=== PATIENT | female | born 1975 | race Hispanic/Latino ===

== ENCOUNTER 2017-07-22 11:19 | Emergency (ER) | payer OTHER ==
[2017-07-22] MEDS ORDERED: IPRATROPIUM/ALBUTEROL SULFATE 3 ML SOLUTION IH ONE (12:37)
[2017-11-04] MEDS ORDERED: METH4TAB PO (20:56)
[2017-11-04] MEDS ORDERED: FLUT1BLS IH (20:56)
== END 2017-07-22 13:11 | disposition home or self-care (01) ==
LOC: EDH 11:19
DX: S83.422A Sprain of lateral collateral ligament of left knee, initial encounter (principal); J45.909 Unspecified asthma, uncomplicated; E11.9 Type 2 diabetes mellitus without complications; W18.39XA Other fall on same level, initial encounter; Y93.01 Activity, walking, marching and hiking; Y92.098 Other place in other non-institutional residence as the place of occurrence of the external cause; Y99.8 Other external cause status
CPT/HCPCS: 73562; 94640

== ENCOUNTER 2017-08-02 18:59 | Emergency (ER) | payer SELFPAY ==
[2017-08-02 20:53] LABS: BASOPHILS % (AUTO) 0.8 % (0.0-5.0); EOSINOPHILS % (AUTO) 1.1 % (0.0-8.0); HEMATOCRIT 36.5 % (36-48); LYMPHOCYTES % (AUTO) 19.3 % (21.0-51.0); MEAN CORPUSCULAR HEMOGLOBIN 23.1 pg (27.0-33.0); MEAN CORPUSCULAR VOLUME 74.4 fL (79-99); MONOCYTES % (AUTO) 6.4 % (3.0-13.0); NEUTROPHILS % (AUTO) 72.4 % (40.0-77.0); NUCLEATED RED BLOOD CELLS 0.1 % (0.0-0.19); PLATELET COUNT (AUTO) 298 K/uL (130-400); RED BLOOD CELL COUNT(AUTO) 4.91 MIL/uL (4.00-5.50); RED CELL DISTRIBUTION WIDTH 18.6 % (11.0-15.5); WHITE BLOOD COUNT (AUTO) 12.2 K/uL (4.8-10.8)
[2017-08-02 21:12] LABS: CARBON DIOXIDE 34 mmol/L (21-32); CHLORIDE 102 mmol/L (101-111); CREATININE 0.6 mg/dL (0.5-1.5); GLOMERULAR FILTR. RATE CALC 116 mL/min (>60); GLUCOSE,RANDOM 113 mg/dL (70-105); POTASSIUM 3.9 mmol/L (3.5-5.1); SODIUM SERUM 140 mmol/L (136-145); UREA NITROGEN, BLOOD 10 mg/dL (7-18)
[2017-08-02 21:26] LABS: ALANINE AMINOTRANSFERASE 19 U/L (12-78); ALBUMIN 2.8 g/dL (3.5-5.0); ASPARTATE AMINOTRANSFERASE 17 U/L (10-37); BILIRUBIN,TOTAL 0.2 mg/dL (0.2-1.0); CREATINE KINASE MB < 0.5 ng/mL (0.5-3.6); CREATINE KINASE, TOTAL 50 U/L (21-232); TOTAL PROTEIN, SERUM 7.3 g/dL (6.0-8.3)
[2017-08-02 22:02] LABS: APPEARANCE,URINE CLEAR (CLEAR); BILIRUBIN,URINE NEGATIVE (NEGATIVE); COLOR,URINE YELLOW (YELLOW); GLUCOSE, URINE (UA) NEGATIVE (NEGATIVE); KETONES,URINE NEGATIVE (NEGATIVE); LEUKOCYTE ESTERASE ,URINE TRACE (NEGATIVE); NITRATE,URINE NEGATIVE (NEGATIVE); OCCULT BLOOD,URINE NEGATIVE (NEGATIVE); PROTEIN,URINE NEGATIVE (NEGATIVE); UROBILINOGEN,URINE 0.2 mg/dL (0.2-1.0)
[2017-08-02 22:05] LABS: HCG,QUAL RESULT NEGATIVE (NEGATIVE)
[2017-08-02 22:16] LABS: BACTERIA,URINE Rare /HPF (None Seen); RBC,URINE 0-1 /HPF (0-1)
[2017-08-02 22:17] LABS: CALCIUM OXALATE CRYSTALS,UR Few /LPF (None Seen); SQUAMOUS EPITHELIAL CELL,UR Rare /LPF (0-2)
[2017-11-04] MEDS ORDERED: METH4TAB PO (20:56)
[2017-11-04] MEDS ORDERED: FLUT1BLS IH (20:56)
== END 2017-08-02 23:37 | disposition home or self-care (01) ==
LOC: EDH 18:59
DX: J45.909 Unspecified asthma, uncomplicated (principal); R06.02 Shortness of breath; E11.9 Type 2 diabetes mellitus without complications; E66.9 Obesity, unspecified; Z68.44 Body mass index [BMI] 60.0-69.9, adult
CPT/HCPCS: 36415; 71045; 80053; 81001; 81025; 82550; 82553; 83880; 85025; 93005

== ENCOUNTER 2017-09-13 06:30 | Emergency (ER) | payer SELFPAY ==
[2017-09-13 08:17] LABS: BASOPHILS % (AUTO) 0.7 % (0.0-5.0); EOSINOPHILS % (AUTO) 1.4 % (0.0-8.0); HEMATOCRIT 38.6 % (36-48); MEAN CORPUSCULAR HEMOGLOBIN 22.8 pg (27.0-33.0); MEAN CORPUSCULAR HGB CONC 30.9 g/dL (32.0-36.0); NEUTROPHILS % (AUTO) 71.9 % (40.0-77.0); PLATELET COUNT (AUTO) 311 K/uL (130-400); RED BLOOD CELL COUNT(AUTO) 5.22 MIL/uL (4.00-5.50); RED CELL DISTRIBUTION WIDTH 18.5 % (11.0-15.5)
[2017-09-13 08:18] LABS: APPEARANCE,URINE Cloudy (CLEAR); BILIRUBIN,URINE Negative (NEGATIVE); COLOR,URINE Dark Yellow (YELLOW); GLUCOSE, URINE (UA) Negative (NEGATIVE); HCG,QUAL RESULT NEGATIVE (NEGATIVE); KETONES,URINE Negative (NEGATIVE); LEUKOCYTE ESTERASE ,URINE Small (NEGATIVE); NITRATE,URINE Negative (NEGATIVE); OCCULT BLOOD,URINE Negative (NEGATIVE); PH,URINE 5.5 (5.0-8.0); PROTEIN,URINE Negative (NEGATIVE)
[2017-09-13 08:22] LABS: BACTERIA,URINE Rare /HPF (None Seen); MUCUS,URINE Moderate LPF (None Seen); SQUAMOUS EPITHELIAL CELL,UR Moderate /HPF (0-2)
[2017-09-13 08:25] LABS: AMPHET/METH SCREEN,URINE NEGATIVE (NEGATIVE); BARBITURATE SCREEN, URINE NEGATIVE (NEGATIVE); BENZODIAZEPINES SCREEN,URINE NEGATIVE (NEGATIVE); CANNABINOID SCREEN,URINE NEGATIVE (NEGATIVE); COCAINE SCREEN,URINE NEGATIVE (NEGATIVE); CREATININE 0.6 mg/dL (0.5-1.5); OPIATE SCREEN,URINE NEGATIVE (NEGATIVE); PHENCYCLIDINE SCREEN,URINE NEGATIVE (NEGATIVE)
[2017-09-13 08:33] LABS: ALBUMIN 2.7 g/dL (3.5-5.0); BILIRUBIN,TOTAL 0.3 mg/dL (0.2-1.0); TOTAL PROTEIN, SERUM 7.4 g/dL (6.0-8.3)
[2017-09-13] MEDS ORDERED: TRAMADOL HCL 50 MG TABLET ONE (09:10)
[2017-11-04] MEDS ORDERED: METH4TAB PO (20:56)
[2017-11-04] MEDS ORDERED: FLUT1BLS IH (20:56)
== END 2017-09-13 10:32 | disposition home or self-care (01) ==
LOC: EDH 06:30
DX: S09.8XXA Other specified injuries of head, initial encounter (principal); M25.511 Pain in right shoulder; J45.909 Unspecified asthma, uncomplicated; E11.9 Type 2 diabetes mellitus without complications; E66.9 Obesity, unspecified; Z68.43 Body mass index [BMI] 50.0-59.9, adult; W18.12XA Fall from or off toilet with subsequent striking against object, initial encounter; Y93.89 Activity, other specified; Y92.89 Other specified places as the place of occurrence of the external cause; Y99.8 Other external cause status
CPT/HCPCS: 36415; 70450; 71045; 73030; 80053; 80305; 81001; 81025; 85025

== ENCOUNTER 2017-09-25 12:40 | Inpatient (IN) | payer OTHER ==
[~2017-09-25] VITALS: Ht 154.9 cm; Wt 155.2 kg
[~2017-09-25 12:40] MED LIST: ETOMIDATE 2 MG/ML 10 ML VIAL IVP ONE; SUCCINYLCHOLINE CHLORIDE 20 MG/ML 10 ML VIAL IVP ONE
[2017-09-25] MEDS ORDERED: ONDANSETRON HCL MDV 20ML 2 MG/ML VIAL ONE (13:08)
[2017-09-25 13:22] LABS: CARBON DIOXIDE 33 mmol/L (21-32); CHLORIDE 103 mmol/L (101-111); CREATININE 0.6 mg/dL (0.5-1.5); GLOMERULAR FILTR. RATE CALC 116 mL/min (>60); GLUCOSE,RANDOM 116 mg/dL (70-105); POTASSIUM 4.2 mmol/L (3.5-5.1); SODIUM SERUM 140 mmol/L (136-145); UREA NITROGEN, BLOOD 11 mg/dL (7-18)
[2017-09-25 13:24] LABS: INR 0.97 (0.85-1.15); PARTIAL THROMBOPLASTIN TIME 26.8 SEC (26.3-35.5); PROTHROMBIN TIME 10.2 SEC (9.6-11.6)
[2017-09-25 13:26] LABS: ALANINE AMINOTRANSFERASE 17 U/L (12-78); ALBUMIN 2.9 g/dL (3.5-5.0); ASPARTATE AMINOTRANSFERASE 14 U/L (10-37); BILIRUBIN,TOTAL 0.3 mg/dL (0.2-1.0); TOTAL PROTEIN, SERUM 7.6 g/dL (6.0-8.3)
[2017-09-25 13:27] LABS: LIPASE < 50 U/L (114-286)
[2017-09-25 13:37] LABS: CREATINE KINASE MB 0.9 ng/mL (0.5-3.6)
[2017-09-25 13:37] LABS: APPEARANCE,URINE Cloudy (CLEAR); BILIRUBIN,URINE Negative (NEGATIVE); COLOR,URINE Yellow (YELLOW); GLUCOSE, URINE (UA) Negative (NEGATIVE); KETONES,URINE Negative (NEGATIVE); LEUKOCYTE ESTERASE ,URINE Small (NEGATIVE); NITRATE,URINE Negative (NEGATIVE); OCCULT BLOOD,URINE Negative (NEGATIVE); PH,URINE 6.5 (5.0-8.0); PROTEIN,URINE Negative (NEGATIVE)
[2017-09-25 13:46] LABS: BACTERIA,URINE Few /HPF (None Seen); RBC,URINE 0-1 /HPF (0-1)
[2017-09-25 13:47] LABS: BASOPHILS % (AUTO) 0.7 % (0.0-5.0); EOSINOPHILS % (AUTO) 1.1 % (0.0-8.0); HEMATOCRIT 39.9 % (36-48); MEAN CORPUSCULAR HGB CONC 31.3 g/dL (32.0-36.0); MEAN CORPUSCULAR VOLUME 73.4 fL (79-99); MONOCYTES % (AUTO) 4.9 % (3.0-13.0); NEUTROPHILS % (AUTO) 77.3 % (40.0-77.0); NUCLEATED RED BLOOD CELLS 0.1 % (0.0-0.19); PLATELET COUNT (AUTO) 315 K/uL (130-400); RED BLOOD CELL COUNT(AUTO) 5.43 MIL/uL (4.00-5.50); RED CELL DISTRIBUTION WIDTH 18.8 % (11.0-15.5); WHITE BLOOD COUNT (AUTO) 11.2 K/uL (4.8-10.8)
[2017-09-25] MEDS ORDERED: ORPHENADRINE CITRATE 30 MG/ML ML ONE (14:45)
[2017-09-25] MEDS ORDERED: KETOROLAC TROMETHAMINE 15MG/ML ONE (14:45)
[2017-09-25] MEDS ORDERED: IPRATROPIUM/ALBUTEROL SULFATE 3 ML SOLUTION IH ONE (15:02)
[2017-09-25] MEDS ORDERED: SODIUM CHLORIDE 0.9% 1000ML 1,000 ML IV ONE (16:03)
[2017-09-25 17:18] LABS: ABG BASE EXCESS 2.1 mmol/L (-2.0-3.0); ABG HCO3 30.6 mmol/L (21.0-28.0); ABG OXYGEN SATURATION 81.6 % (95.0-99.0); ABG PCO2 65 mmHg (32-45)
[2017-09-25 18:53] VITALS: BP 129/73
[2017-09-25] MEDS: ONDANSETRON HCL MDV 20ML 2 MG/ML VIAL IVP PRN (21:40)
[2017-09-25] MEDS ORDERED: ALBU6.7H IH (21:46)
[2017-09-25] MEDS ORDERED: AUD IH (21:46)
[2017-09-25] MEDS ORDERED: METF850T2 PO (21:46)
[2017-09-25] MEDS ORDERED: GLUCAGON 1MG KIT 1 MG ML IM PRN (23:00)
[2017-09-25] MEDS ORDERED: POTASSIUM CHLORIDE 20 MEQ ERTAB PO PRN (23:00)
[2017-09-25] MEDS ORDERED: LIDOCAINE HCL-MPF 1% 2ML VIAL IVP PRN (23:00)
[2017-09-25] MEDS ORDERED: KETOROLAC TROMETHAMINE 15MG/ML IM PRN (23:00)
[2017-09-25] MEDS ORDERED: DEXTROSE 50%-WATER 50 ML DISP.SYRIN IV PRN (23:00)
[2017-09-25] MEDS: IPRATROPIUM/ALBUTEROL SULFATE 3 ML SOLUTION IH SCH (23:09)
[2017-09-25 23:56] VITALS: BP 153/85
[2017-09-26] VITALS (9 sets, daily range): BP systolic 98–162; BP diastolic 51–98
[2017-09-26] MEDS ORDERED: KETOROLAC TROMETHAMINE 15MG/ML ONE (00:49)
[2017-09-26] MEDS: ACETAMINOPHEN 325 MG TAB PO PRN ×3 (02:11→20:02)
[2017-09-26 04:02] LABS: BASOPHILS % (AUTO) 0.6 % (0.0-5.0); EOSINOPHILS % (AUTO) 0.1 % (0.0-8.0); HEMATOCRIT 38.9 % (36-48); LYMPHOCYTES % (AUTO) 12.3 % (21.0-51.0); MEAN CORPUSCULAR HEMOGLOBIN 23.4 pg (27.0-33.0); MEAN CORPUSCULAR VOLUME 75.6 fL (79-99); MONOCYTES % (AUTO) 4.5 % (3.0-13.0); NEUTROPHILS % (AUTO) 82.5 % (40.0-77.0); NUCLEATED RED BLOOD CELLS 0.1 % (0.0-0.19); PLATELET COUNT (AUTO) 355 K/uL (130-400); RED BLOOD CELL COUNT(AUTO) 5.15 MIL/uL (4.00-5.50); RED CELL DISTRIBUTION WIDTH 18.7 % (11.0-15.5); WHITE BLOOD COUNT (AUTO) 14.1 K/uL (4.8-10.8)
[2017-09-26 04:09] LABS: CREATININE 0.7 mg/dL (0.5-1.5); POTASSIUM 4.4 mmol/L (3.5-5.1)
[2017-09-26] MEDS ORDERED: KETOROLAC TROMETHAMINE 15MG/ML IV PRN (05:00)
[2017-09-26] MEDS: IPRATROPIUM/ALBUTEROL SULFATE 3 ML SOLUTION IH SCH ×3 (05:57→18:37)
[2017-09-26] MEDS: INSULIN HUMULIN R 100 UNIT/ML 3ML SQ SCH ×4 (06:35→20:03)
[2017-09-26] MEDS: FAMOTIDINE 20MG TAB 20 MG TAB PO SCH ×2 (08:43→20:01)
[2017-09-26] MEDS: METHYLPREDNISOLONE SOD SUCC 40MG/ML 1ML IVP SCH ×2 (08:44→20:01)
[2017-09-26 09:52] LABS: ABG BASE EXCESS 1.3 mmol/L (-2.0-3.0); ABG HCO3 34.1 mmol/L (21.0-28.0); ABG OXYGEN SATURATION 88.9 % (95.0-99.0); ABG PCO2 103 mmHg (32-45)
[2017-09-26] MEDS ORDERED: ENOXAPARIN SODIUM 60 MG/0.6 ML SQ SCH (10:30)
[2017-09-26 17:48] LABS: ABG BASE EXCESS 1.2 mmol/L (-2.0-3.0); ABG HCO3 32.9 mmol/L (21.0-28.0); ABG OXYGEN SATURATION 80.1 % (95.0-99.0); ABG PCO2 91 mmHg (32-45)
[2017-09-26 22:48] LABS: ABG OXYGEN SATURATION 91.9 % (95.0-99.0); ABG PCO2 120 mmHg (32-45)
[2017-09-26] MEDS ORDERED: PROPOFOL 1000 MG/100 ML 100 ML IV ONE (23:30)
[2017-09-26] MEDS ORDERED: MIDAZOLAM HCL 1 MG/ML 2ML VIAL ONE (23:30)
[2017-09-27] VITALS (35 sets, daily range): BP systolic 80–136; BP diastolic 51–83
[2017-09-27] MEDS ORDERED: FENTANYL 2500MCG+NS 250ML 250 ML IV ONE (00:08)
[2017-09-27] MEDS ORDERED: FENTANYL 2500MCG+NS 250ML 250 ML IV PRN (00:15)
[2017-09-27] MEDS: IPRATROPIUM/ALBUTEROL SULFATE 3 ML SOLUTION IH SCH ×4 (00:46→19:23)
[2017-09-27] MEDS ORDERED: PROPOFOL 1000 MG/100 ML 100 ML IV ONE (00:53)
[2017-09-27 01:45] LABS: ABG BASE EXCESS 6.5 mmol/L (-2.0-3.0); ABG HCO3 32.4 mmol/L (21.0-28.0); ABG OXYGEN SATURATION 99.3 % (95.0-99.0); ABG PCO2 51 mmHg (32-45)
[2017-09-27] MEDS: MIDAZOLAM 100MG-0.9% NS 100ML 100 ML IV PRN ×2 (01:53→11:27)
[2017-09-27] MEDS ORDERED: PROPOFOL 1000 MG/100 ML IV PRN (03:15)
[2017-09-27] MEDS: PROPOFOL 1000 MG/100 ML 100 ML IV PRN ×4 (04:03→22:16)
[2017-09-27] MEDS: INSULIN HUMULIN R 100 UNIT/ML 3ML SQ SCH ×3 (06:00→18:00)
[2017-09-27 08:31] LABS: ABG BASE EXCESS 7.1 mmol/L (-2.0-3.0); ABG HCO3 29.6 mmol/L (21.0-28.0); ABG OXYGEN SATURATION 85.4 % (95.0-99.0); ABG PCO2 35 mmHg (32-45)
[2017-09-27] MEDS: ENOXAPARIN SODIUM 60 MG/0.6 ML SQ SCH (10:32)
[2017-09-27] MEDS: METHYLPREDNISOLONE SOD SUCC 40MG/ML 1ML IVP SCH ×2 (10:32→20:28)
[2017-09-27] MEDS: FAMOTIDINE 20MG TAB 20 MG TAB PO SCH ×2 (10:32→20:28)
[2017-09-27] MEDS: DEXTROSE 5 %-0.45 % NACL 1,000 ML IV SCH (11:28)
[2017-09-27 11:33] LABS: ALBUMIN 2.8 g/dL (3.5-5.0); BILIRUBIN,TOTAL 0.6 mg/dL (0.2-1.0); CREATININE 0.7 mg/dL (0.5-1.5); TOTAL PROTEIN, SERUM 7.3 g/dL (6.0-8.3)
[2017-09-27 11:44] LABS: BASOPHILS % (AUTO) 0.1 % (0.0-5.0); HEMATOCRIT 37.6 % (36-48); MEAN CORPUSCULAR HGB CONC 30.6 g/dL (32.0-36.0); MEAN CORPUSCULAR VOLUME 75.3 fL (79-99); MONOCYTES % (AUTO) 4.4 % (3.0-13.0); NEUTROPHILS % (AUTO) 89.5 % (40.0-77.0); PLATELET COUNT (AUTO) 280 K/uL (130-400); RED BLOOD CELL COUNT(AUTO) 4.99 MIL/uL (4.00-5.50); RED CELL DISTRIBUTION WIDTH 18.6 % (11.0-15.5); WHITE BLOOD COUNT (AUTO) 23.3 K/uL (4.8-10.8)
[2017-09-27] MEDS ORDERED: VANCOMYCIN 1.25 GM in SODIUM CHLORIDE 0.9% 250 ML IV SCH (14:00)
[2017-09-27 14:43] LABS: ABG BASE EXCESS 9.9 mmol/L (-2.0-3.0); ABG HCO3 33.3 mmol/L (21.0-28.0); ABG OXYGEN SATURATION 98.2 % (95.0-99.0); ABG PCO2 40 mmHg (32-45)
[2017-09-27] MEDS ORDERED: VANCOMYCIN PROTOCOL PER PHARMACY IV SCH (14:45)
[2017-09-27] MEDS: ZOSYN 3.375GM+NS 50ML 50 ML IV SCH ×2 (14:47→20:47)
[2017-09-27] MEDS ORDERED: COMPOUND IV REFRIGERATED 1 EACH IVSOLN MISC PRN (15:45)
[2017-09-27] MEDS: ARTIFICAL TEARS SOL 15 ML OD PRN ×2 (16:13→20:53)
[2017-09-27] MEDS: VANCOMYCIN IV SCH (23:15)
[2017-09-27] MEDS: SODIUM CHLORIDE 0.9% IV SCH (23:15)
[2017-09-28] VITALS (24 sets, daily range): BP systolic 81–156; BP diastolic 31–97
[2017-09-28] MEDS: DEXTROSE 5 %-0.45 % NACL 1,000 ML IV SCH ×2 (00:20→13:27)
[2017-09-28] MEDS: IPRATROPIUM/ALBUTEROL SULFATE 3 ML SOLUTION IH SCH ×4 (00:29→19:29)
[2017-09-28] MEDS: PROPOFOL 1000 MG/100 ML 100 ML IV PRN ×4 (01:43→21:28)
[2017-09-28 04:05] LABS: MEAN CORPUSCULAR HEMOGLOBIN 23.7 pg (27.0-33.0); MEAN CORPUSCULAR HGB CONC 31.7 g/dL (32.0-36.0); MEAN CORPUSCULAR VOLUME 74.7 fL (79-99); PLATELET COUNT (AUTO) 262 K/uL (130-400); RED BLOOD CELL COUNT(AUTO) 4.68 MIL/uL (4.00-5.50); RED CELL DISTRIBUTION WIDTH 18.9 % (11.0-15.5); WHITE BLOOD COUNT (AUTO) 18.8 K/uL (4.8-10.8)
[2017-09-28 04:13] LABS: INR 1.02 (0.85-1.15); PROTHROMBIN TIME 10.7 SEC (9.6-11.6)
[2017-09-28 04:18] LABS: CREATININE 0.6 mg/dL (0.5-1.5); MAGNESIUM 2.1 mg/dL (1.80-2.40); PHOSPHORUS 2.4 mg/dL (2.5-4.9); POTASSIUM 4.1 mmol/L (3.5-5.1)
[2017-09-28] MEDS: ZOSYN 3.375GM+NS 50ML 50 ML IV SCH ×3 (05:38→21:33)
[2017-09-28] MEDS: INSULIN HUMULIN R 100 UNIT/ML 3ML SQ SCH ×5 (05:59→23:53)
[2017-09-28] MEDS: FAMOTIDINE 20MG TAB 20 MG TAB PO SCH ×2 (09:00→20:36)
[2017-09-28] MEDS: PANTOPRAZOLE 40 MG/VIAL IVP SCH (10:40)
[2017-09-28] MEDS: ENOXAPARIN SODIUM 60 MG/0.6 ML SQ SCH (10:41)
[2017-09-28] MEDS: METHYLPREDNISOLONE SOD SUCC 40MG/ML 1ML IVP SCH ×2 (10:41→20:35)
[2017-09-28] MEDS: VANCOMYCIN IV SCH ×2 (12:00→23:32)
[2017-09-28] MEDS: SODIUM CHLORIDE 0.9% IV SCH ×2 (12:00→23:32)
[2017-09-28] MEDS: FUROSEMIDE 10 MG/ML 4ML VIAL IV SCH (19:04)
[2017-09-29] VITALS (25 sets, daily range): BP systolic 88–169; BP diastolic 45–95
[2017-09-29] MEDS: IPRATROPIUM/ALBUTEROL SULFATE 3 ML SOLUTION IH SCH ×5 (00:28→23:28)
[2017-09-29] MEDS: PROPOFOL 1000 MG/100 ML 100 ML IV PRN ×7 (00:45→22:51)
[2017-09-29] MEDS: DEXTROSE 5 %-0.45 % NACL 1,000 ML IV SCH ×2 (03:05→21:41)
[2017-09-29 05:14] LABS: BASOPHILS % (AUTO) 0.3 % (0.0-5.0); EOSINOPHILS % (AUTO) 0.1 % (0.0-8.0); HEMATOCRIT 35.8 % (36-48); LYMPHOCYTES % (AUTO) 6.2 % (21.0-51.0); MEAN CORPUSCULAR HEMOGLOBIN 23.6 pg (27.0-33.0); MEAN CORPUSCULAR HGB CONC 31.6 g/dL (32.0-36.0); MEAN CORPUSCULAR VOLUME 74.7 fL (79-99); MONOCYTES % (AUTO) 4.3 % (3.0-13.0); NEUTROPHILS % (AUTO) 89.1 % (40.0-77.0); NUCLEATED RED BLOOD CELLS 0.1 % (0.0-0.19); PLATELET COUNT (AUTO) 289 K/uL (130-400); RED BLOOD CELL COUNT(AUTO) 4.79 MIL/uL (4.00-5.50); RED CELL DISTRIBUTION WIDTH 18.6 % (11.0-15.5); WHITE BLOOD COUNT (AUTO) 17.6 K/uL (4.8-10.8)
[2017-09-29 05:30] LABS: CREATININE 0.6 mg/dL (0.5-1.5); POTASSIUM 3.9 mmol/L (3.5-5.1)
[2017-09-29] MEDS: INSULIN HUMULIN R 100 UNIT/ML 3ML SQ SCH ×3 (06:00→18:00)
[2017-09-29] MEDS: ZOSYN 3.375GM+NS 50ML 50 ML IV SCH ×3 (06:07→21:55)
[2017-09-29] MEDS: FUROSEMIDE 10 MG/ML 4ML VIAL IV ONE ×2 (08:33→09:20)
[2017-09-29] MEDS: PANTOPRAZOLE 40 MG/VIAL IVP SCH ×2 (08:33→08:44)
[2017-09-29] MEDS: FAMOTIDINE 20MG TAB 20 MG TAB PO SCH ×2 (08:41→21:00)
[2017-09-29] MEDS: METHYLPREDNISOLONE SOD SUCC 40MG/ML 1ML IVP SCH ×2 (08:43→21:55)
[2017-09-29] MEDS: ENOXAPARIN SODIUM 60 MG/0.6 ML SQ SCH (08:43)
[2017-09-29] MEDS: FUROSEMIDE 10 MG/ML 4ML VIAL IV SCH ×3 (10:15→22:40)
[2017-09-29 10:38] LABS: ABG BASE EXCESS 9.3 mmol/L (-2.0-3.0); ABG HCO3 36.8 mmol/L (21.0-28.0); ABG OXYGEN SATURATION 88.6 % (95.0-99.0); ABG PCO2 62 mmHg (32-45)
[2017-09-29] MEDS: ACETYLCYSTEINE 10% 100MG/ML 4ML VIAL IH SCH ×3 (11:37→23:28)
[2017-09-29] MEDS: VANCOMYCIN IV SCH ×2 (12:36→21:55)
[2017-09-29] MEDS: SODIUM CHLORIDE 0.9% IV SCH ×2 (12:36→21:55)
[2017-09-29] MEDS: LISINOPRIL 10 MG TABLET PO SCH (15:39)
[2017-09-29] MEDS: METOPROLOL TARTRATE 25 MG TAB PO SCH (20:34)
[2017-09-30] VITALS (24 sets, daily range): BP systolic 101–157; BP diastolic 40–104
[2017-09-30] MEDS: PROPOFOL 1000 MG/100 ML 100 ML IV PRN ×5 (02:24→23:16)
[2017-09-30 03:51] LABS: BASOPHILS % (AUTO) 0.3 % (0.0-5.0); EOSINOPHILS % (AUTO) 0.1 % (0.0-8.0); HEMATOCRIT 35.6 % (36-48); LYMPHOCYTES % (AUTO) 8.3 % (21.0-51.0); MEAN CORPUSCULAR HGB CONC 31.1 g/dL (32.0-36.0); MONOCYTES % (AUTO) 4.5 % (3.0-13.0); NEUTROPHILS % (AUTO) 86.8 % (40.0-77.0); PLATELET COUNT (AUTO) 281 K/uL (130-400); RED BLOOD CELL COUNT(AUTO) 4.82 MIL/uL (4.00-5.50); RED CELL DISTRIBUTION WIDTH 18.8 % (11.0-15.5); WHITE BLOOD COUNT (AUTO) 14.6 K/uL (4.8-10.8)
[2017-09-30 04:21] LABS: CREATININE 0.6 mg/dL (0.5-1.5); MAGNESIUM 2.1 mg/dL (1.80-2.40); PHOSPHORUS 3.3 mg/dL (2.5-4.9); POTASSIUM 3.8 mmol/L (3.5-5.1)
[2017-09-30] MEDS: INSULIN HUMULIN R 100 UNIT/ML 3ML SQ SCH ×4 (05:22→18:00)
[2017-09-30] MEDS: ZOSYN 3.375GM+NS 50ML 50 ML IV SCH ×3 (06:04→21:52)
[2017-09-30] MEDS: IPRATROPIUM/ALBUTEROL SULFATE 3 ML SOLUTION IH SCH ×3 (06:28→18:16)
[2017-09-30] MEDS: ACETYLCYSTEINE 10% 100MG/ML 4ML VIAL IH SCH ×3 (06:28→18:16)
[2017-09-30] MEDS: METHYLPREDNISOLONE SOD SUCC 40MG/ML 1ML IVP SCH ×2 (08:37→20:45)
[2017-09-30] MEDS: FAMOTIDINE/PF 20 MG/2 ML VIAL IV SCH ×2 (08:37→20:48)
[2017-09-30] MEDS: ENOXAPARIN SODIUM 60 MG/0.6 ML SQ SCH (08:39)
[2017-09-30] MEDS: LISINOPRIL 10 MG TABLET PO SCH (09:00)
[2017-09-30] MEDS: METOPROLOL TARTRATE 25 MG TAB PO SCH ×2 (09:00→20:46)
[2017-09-30 10:07] LABS: ABG BASE EXCESS 7.5 mmol/L (-2.0-3.0); ABG OXYGEN SATURATION 94.2 % (95.0-99.0); ABG PCO2 55 mmHg (32-45)
[2017-09-30] MEDS: FUROSEMIDE 10 MG/ML 4ML VIAL IV SCH ×2 (10:45→21:53)
[2017-09-30] MEDS ORDERED: ARTIFICAL TEARS SOL 15 ML OD PRN (11:19)
[2017-09-30] MEDS: VANCOMYCIN IV SCH (12:31)
[2017-09-30] MEDS: SODIUM CHLORIDE 0.9% IV SCH (12:31)
[2017-09-30 13:33] LABS: ABG BASE EXCESS 9.1 mmol/L (-2.0-3.0); ABG HCO3 36.8 mmol/L (21.0-28.0); ABG OXYGEN SATURATION 88.4 % (95.0-99.0); ABG PCO2 63 mmHg (32-45)
[2017-09-30] MEDS: DEXTROSE 5 %-0.45 % NACL 1,000 ML IV SCH (21:49)
[2017-10-01] VITALS (25 sets, daily range): BP systolic 87–151; BP diastolic 46–88
[2017-10-01] MEDS: ACETYLCYSTEINE 10% 100MG/ML 4ML VIAL IH SCH ×5 (00:12→23:24)
[2017-10-01] MEDS: IPRATROPIUM/ALBUTEROL SULFATE 3 ML SOLUTION IH SCH ×5 (00:12→23:24)
[2017-10-01] MEDS: SODIUM CHLORIDE 0.9% IV SCH ×3 (00:44→22:31)
[2017-10-01] MEDS: VANCOMYCIN IV SCH ×3 (00:44→22:31)
[2017-10-01] MEDS: PROPOFOL 1000 MG/100 ML 100 ML IV PRN ×2 (02:05→04:42)
[2017-10-01 03:56] LABS: HEMATOCRIT 35.1 % (36-48); MEAN CORPUSCULAR HEMOGLOBIN 23.7 pg (27.0-33.0); MEAN CORPUSCULAR HGB CONC 32.2 g/dL (32.0-36.0); MEAN CORPUSCULAR VOLUME 73.8 fL (79-99); PLATELET COUNT (AUTO) 282 K/uL (130-400); RED BLOOD CELL COUNT(AUTO) 4.75 MIL/uL (4.00-5.50); RED CELL DISTRIBUTION WIDTH 18.4 % (11.0-15.5); WHITE BLOOD COUNT (AUTO) 13.6 K/uL (4.8-10.8)
[2017-10-01 04:06] LABS: CREATININE 0.7 mg/dL (0.5-1.5); POTASSIUM 3.7 mmol/L (3.5-5.1)
[2017-10-01] MEDS: ZOSYN 3.375GM+NS 50ML 50 ML IV SCH ×3 (05:15→21:06)
[2017-10-01] MEDS: INSULIN HUMULIN R 100 UNIT/ML 3ML SQ SCH ×5 (05:46→23:57)
[2017-10-01] MEDS: POTASSIUM CHLORIDE 20MEQ/100ML 100 ML IV PRN (06:01)
[2017-10-01] MEDS: FAMOTIDINE/PF 20 MG/2 ML VIAL IV SCH ×2 (09:32→20:44)
[2017-10-01] MEDS: METHYLPREDNISOLONE SOD SUCC 40MG/ML 1ML IVP SCH ×2 (09:32→20:45)
[2017-10-01] MEDS: ENOXAPARIN SODIUM 60 MG/0.6 ML SQ SCH (09:32)
[2017-10-01] MEDS: METOPROLOL TARTRATE 25 MG TAB PO SCH ×2 (09:33→21:03)
[2017-10-01] MEDS: LISINOPRIL 10 MG TABLET PO SCH (09:33)
[2017-10-01] MEDS: FUROSEMIDE 10 MG/ML 4ML VIAL IV SCH ×2 (09:43→21:07)
[2017-10-01 09:58] LABS: ABG BASE EXCESS 6.3 mmol/L (-2.0-3.0); ABG HCO3 33.4 mmol/L (21.0-28.0); ABG OXYGEN SATURATION 94.3 % (95.0-99.0); ABG PCO2 59 mmHg (32-45)
[2017-10-02] VITALS (14 sets, daily range): BP systolic 87–139; BP diastolic 41–78
[2017-10-02] MEDS: INSULIN HUMULIN R 100 UNIT/ML 3ML SQ SCH ×4 (05:03→21:09)
[2017-10-02] MEDS: ZOSYN 3.375GM+NS 50ML 50 ML IV SCH ×3 (05:03→20:35)
[2017-10-02] MEDS: POTASSIUM CHLORIDE 20MEQ/100ML 100 ML IV PRN (05:03)
[2017-10-02 05:13] LABS: BASOPHILS % (AUTO) 0.5 % (0.0-5.0); EOSINOPHILS % (AUTO) 0.5 % (0.0-8.0); HEMATOCRIT 36.7 % (36-48); LYMPHOCYTES % (AUTO) 10.6 % (21.0-51.0); MEAN CORPUSCULAR HEMOGLOBIN 22.8 pg (27.0-33.0); MEAN CORPUSCULAR HGB CONC 30.8 g/dL (32.0-36.0); MONOCYTES % (AUTO) 6.2 % (3.0-13.0); NEUTROPHILS % (AUTO) 82.2 % (40.0-77.0); PLATELET COUNT (AUTO) 293 K/uL (130-400); RED BLOOD CELL COUNT(AUTO) 4.95 MIL/uL (4.00-5.50); RED CELL DISTRIBUTION WIDTH 18.6 % (11.0-15.5); WHITE BLOOD COUNT (AUTO) 17.9 K/uL (4.8-10.8)
[2017-10-02 05:19] LABS: CREATININE 0.7 mg/dL (0.5-1.5); POTASSIUM 3.7 mmol/L (3.5-5.1)
[2017-10-02] MEDS: ACETYLCYSTEINE 10% 100MG/ML 4ML VIAL IH SCH ×4 (06:35→23:58)
[2017-10-02] MEDS: IPRATROPIUM/ALBUTEROL SULFATE 3 ML SOLUTION IH SCH ×4 (06:35→23:58)
[2017-10-02 06:59] LABS: ABG BASE EXCESS 6.5 mmol/L (-2.0-3.0); ABG HCO3 32.9 mmol/L (21.0-28.0); ABG PCO2 55 mmHg (32-45)
[2017-10-02] MEDS: METOPROLOL TARTRATE 25 MG TAB PO SCH ×2 (09:20→20:33)
[2017-10-02] MEDS: LISINOPRIL 10 MG TABLET PO SCH (09:23)
[2017-10-02] MEDS: FAMOTIDINE/PF 20 MG/2 ML VIAL IV SCH ×2 (09:23→20:34)
[2017-10-02] MEDS: FUROSEMIDE 10 MG/ML 4ML VIAL IV SCH ×2 (09:24→20:34)
[2017-10-02] MEDS: METHYLPREDNISOLONE SOD SUCC 40MG/ML 1ML IVP SCH ×2 (09:24→20:34)
[2017-10-02] MEDS: ENOXAPARIN SODIUM 60 MG/0.6 ML SQ SCH (09:26)
[2017-10-02] MEDS: VANCOMYCIN IV SCH (11:38)
[2017-10-02] MEDS: SODIUM CHLORIDE 0.9% IV SCH (11:38)
[2017-10-02] MEDS ORDERED: SODIUM CHLORIDE 0.9% 500ML 500 ML IV ONE (20:59)
[2017-10-03] MEDS: VANCOMYCIN IV SCH ×2 (00:38→11:51)
[2017-10-03] MEDS: SODIUM CHLORIDE 0.9% IV SCH ×2 (00:38→11:51)
[2017-10-03] MEDS: ONDANSETRON HCL MDV 20ML 2 MG/ML VIAL IVP PRN (02:14)
[2017-10-03] MEDS: ACETAMINOPHEN 325 MG TAB PO PRN (02:16)
[2017-10-03 03:59] VITALS: BP 117/62
[2017-10-03 04:48] LABS: CREATININE 0.7 mg/dL (0.5-1.5); POTASSIUM 3.6 mmol/L (3.5-5.1)
[2017-10-03] MEDS: ZOSYN 3.375GM+NS 50ML 50 ML IV SCH (05:34)
[2017-10-03] MEDS: POTASSIUM CHLORIDE 10% ELIXIR 20 MEQ/15 ML UDCUP PO PRN ×2 (05:35→07:13)
[2017-10-03] MEDS: INSULIN HUMULIN R 100 UNIT/ML 3ML SQ SCH ×2 (05:42→10:53)
[2017-10-03] MEDS: IPRATROPIUM/ALBUTEROL SULFATE 3 ML SOLUTION IH SCH ×2 (06:44→11:07)
[2017-10-03] MEDS: ACETYLCYSTEINE 10% 100MG/ML 4ML VIAL IH SCH ×2 (06:44→11:07)
[2017-10-03 07:49] VITALS: BP 119/72
[2017-10-03] MEDS: METHYLPREDNISOLONE SOD SUCC 40MG/ML 1ML IVP SCH (08:26)
[2017-10-03] MEDS: FAMOTIDINE/PF 20 MG/2 ML VIAL IV SCH (08:26)
[2017-10-03] MEDS: LISINOPRIL 10 MG TABLET PO SCH (08:26)
[2017-10-03] MEDS: ENOXAPARIN SODIUM 60 MG/0.6 ML SQ SCH (08:27)
[2017-10-03] MEDS: METOPROLOL TARTRATE 25 MG TAB PO SCH (08:27)
[2017-10-03] MEDS: FUROSEMIDE 10 MG/ML 4ML VIAL IV SCH (10:43)
[2017-10-03 11:11] VITALS: BP 123/56
[2017-10-04] MEDS ORDERED: PREDNISONE 20 MG TABLET PO SCH (09:00)
[2017-11-04] MEDS ORDERED: METH4TAB PO (20:56)
[2017-11-04] MEDS ORDERED: FLUT1BLS IH (20:56)
== END 2017-10-03 14:21 | disposition home or self-care (01) | DRG 207 ==
LOC: EDH 12:40 → EDHIP 12:41 → 2AH 18:46 → 2CH 09-26 23:18 → 2AH 10-02 13:04
PROVIDERS: ADMIT Family Medicine; ATTEND Family Medicine
PROC: 0BH17EZ Insertion of Endotracheal Airway into Trachea, Via Natural or Artificial Opening (ICD-10-PCS; principal; 2017-09-25)
PROC: 5A1955Z Respiratory Ventilation, Greater than 96 Consecutive Hours (ICD-10-PCS; 2017-09-25)
PROC: 5A09357 Assistance with Respiratory Ventilation, Less than 24 Consecutive Hours, Continuous Positive Airway Pressure (ICD-10-PCS; 2017-09-25)
PROC: 5A09357 Assistance with Respiratory Ventilation, Less than 24 Consecutive Hours, Continuous Positive Airway Pressure (ICD-10-PCS; 2017-09-26)
PROC: 5A1935Z Respiratory Ventilation, Less than 24 Consecutive Hours (ICD-10-PCS; 2017-09-28)
PROC: 5A09357 Assistance with Respiratory Ventilation, Less than 24 Consecutive Hours, Continuous Positive Airway Pressure (ICD-10-PCS; 2017-09-28)
PROC: 02H633Z Insertion of Infusion Device into Right Atrium, Percutaneous Approach (ICD-10-PCS; 2017-09-28)
PROC: 5A1935Z Respiratory Ventilation, Less than 24 Consecutive Hours (ICD-10-PCS; 2017-09-30)
DX: J96.21 Acute and chronic respiratory failure with hypoxia (principal); G93.41 Metabolic encephalopathy; J18.9 Pneumonia, unspecified organism; E87.3 Alkalosis; Z68.44 Body mass index [BMI] 60.0-69.9, adult; D50.9 Iron deficiency anemia, unspecified; E11.9 Type 2 diabetes mellitus without complications; G47.33 Obstructive sleep apnea (adult) (pediatric); I10 Essential (primary) hypertension; J45.909 Unspecified asthma, uncomplicated; J96.22 Acute and chronic respiratory failure with hypercapnia; Z82.49 Family history of ischemic heart disease and other diseases of the circulatory system; Z87.01 Personal history of pneumonia (recurrent); Z91.19 Patient's noncompliance with other medical treatment and regimen; Z90.49 Acquired absence of other specified parts of digestive tract
CPT/HCPCS: 31500; 36415; 36600; 71045; 71046; 80048; 80053; 80202; 81001; 81025; 82330; 82435; 82550; 82553; 82803; 82947; 82948; 83605; 83690; 83735; 83880; 84100; 84132; 84295; 84484; 85018; 85025; 85027; 85610; 85730; 93005; 93970; 94002; 94003; 94640; 94660; 94664; 94668; 97039; C1894; C9113; J0330; J1650; J1885; J1940; J2250; J2543; J2704; J2920; J3010; J3370; J3480; J3490; J7030; J7040; J7042; J7608

== ENCOUNTER 2017-10-27 11:38 | Inpatient (IN) | payer OTHER ==
[~2017-10-27] VITALS: Ht 160 cm; Wt 153.3 kg
[~2017-10-27 11:38] MED LIST changes: +ALBU6.7H IH; +AUD IH; -ETOMIDATE 2 MG/ML 10 ML VIAL IVP ONE; +METF850T2 PO; -SUCCINYLCHOLINE CHLORIDE 20 MG/ML 10 ML VIAL IVP ONE
[2017-10-27] MEDS ORDERED: METHYLPREDNISOLONE SOD SUCC 125MG/2ML VIAL ONE (12:23)
[2017-10-27] MEDS ORDERED: IPRATROPIUM/ALBUTEROL SULFATE 3 ML SOLUTION IH ONE ×2 (12:34)
[2017-10-27 12:43] LABS: BASOPHILS % (AUTO) 0.5 % (0.0-5.0); EOSINOPHILS % (AUTO) 2.4 % (0.0-8.0); HEMATOCRIT 38.7 % (36-48); LYMPHOCYTES % (AUTO) 25.1 % (21.0-51.0); MEAN CORPUSCULAR HEMOGLOBIN 24.5 pg (27.0-33.0); MEAN CORPUSCULAR HGB CONC 32.8 g/dL (32.0-36.0); MEAN CORPUSCULAR VOLUME 74.7 fL (79-99); MONOCYTES % (AUTO) 7.6 % (3.0-13.0); NEUTROPHILS % (AUTO) 64.4 % (40.0-77.0); PLATELET COUNT (AUTO) 339 K/uL (130-400); RED BLOOD CELL COUNT(AUTO) 5.18 MIL/uL (4.00-5.50); RED CELL DISTRIBUTION WIDTH 20.3 % (11.0-15.5); WHITE BLOOD COUNT (AUTO) 11.5 K/uL (4.8-10.8)
[2017-10-27 12:54] LABS: CREATININE 0.5 mg/dL (0.5-1.5)
[2017-10-27 12:59] LABS: ALBUMIN 2.8 g/dL (3.5-5.0); BILIRUBIN,TOTAL 0.3 mg/dL (0.2-1.0)
[2017-10-27 13:35] LABS: B-TYPE NATRIURETIC PEPTIDE 42 pg/mL (0-100)
[2017-10-27] MEDS ORDERED: LEVOFLOXACIN 500 MG/D5W 100 ML 100 ML ONE (15:23)
[2017-10-27] MEDS ORDERED: SODIUM CHLORIDE 0.9% 10 ML VIAL IVP PRN (16:15)
[2017-10-27] MEDS ORDERED: ENOXAPARIN SODIUM 40 MG/0.4 ML SYRINGE SQ ONE (18:07)
[2017-10-27] MEDS: IPRATROPIUM/ALBUTEROL SULFATE 3 ML SOLUTION IH SCH ×2 (19:37→22:47)
[2017-10-27] MEDS ORDERED: METHYLPREDNISOLONE SOD SUCC 40MG/ML 1ML ONE (22:03)
[2017-10-27 22:15] VITALS: BP 151/84
[2017-10-27] MEDS ORDERED: DEXTROSE 50%-WATER 50 ML DISP.SYRIN IV PRN (22:15)
[2017-10-27] MEDS ORDERED: GLUCAGON 1MG KIT 1 MG ML IM PRN (22:15)
[2017-10-27] MEDS ORDERED: ONDANSETRON HCL MDV 20ML 2 MG/ML VIAL IVP PRN (22:15)
[2017-10-27] MEDS: METHYLPREDNISOLONE SOD SUCC 125MG/2ML VIAL IVP SCH (23:00)
[2017-10-28] VITALS (7 sets, daily range): BP systolic 112–155; BP diastolic 50–99
[2017-10-28] MEDS: IPRATROPIUM/ALBUTEROL SULFATE 3 ML SOLUTION IH SCH ×6 (02:12→21:53)
[2017-10-28] MEDS: ACETAMINOPHEN 325 MG TAB PO PRN ×3 (03:22→21:19)
[2017-10-28 04:09] LABS: BASOPHILS % (AUTO) 0.2 % (0.0-5.0); LYMPHOCYTES % (AUTO) 8.7 % (21.0-51.0); MEAN CORPUSCULAR HEMOGLOBIN 24.1 pg (27.0-33.0); MEAN CORPUSCULAR HGB CONC 31.6 g/dL (32.0-36.0); MEAN CORPUSCULAR VOLUME 76.1 fL (79-99); MONOCYTES % (AUTO) 1.2 % (3.0-13.0); NEUTROPHILS % (AUTO) 89.9 % (40.0-77.0); PLATELET COUNT (AUTO) 338 K/uL (130-400); RED BLOOD CELL COUNT(AUTO) 5.26 MIL/uL (4.00-5.50); RED CELL DISTRIBUTION WIDTH 20.2 % (11.0-15.5); WHITE BLOOD COUNT (AUTO) 14.6 K/uL (4.8-10.8)
[2017-10-28 04:23] LABS: CREATININE 0.6 mg/dL (0.5-1.5); POTASSIUM 4.3 mmol/L (3.5-5.1)
[2017-10-28] MEDS: METHYLPREDNISOLONE SOD SUCC 125MG/2ML VIAL IVP SCH (06:07)
[2017-10-28] MEDS: INSULIN HUMULIN R 100 UNIT/ML 3ML SQ SCH ×4 (06:12→21:32)
[2017-10-28] MEDS: INSULIN GLARGINE 100 UNITS/ML 10 ML VIAL SQ SCH ×2 (06:13→21:29)
[2017-10-28] MEDS: ENOXAPARIN SODIUM 40 MG/0.4 ML SYRINGE SQ SCH (08:46)
[2017-10-28] MEDS ORDERED: FAMOTIDINE 20MG TAB 20 MG TAB PO SCH (09:00)
[2017-10-28] MEDS ORDERED: LISINOPRIL 5 MG TABLET PO SCH (14:00)
[2017-10-28] MEDS: BUDESONIDE 0.5 MG/2 ML INH IH SCH (18:39)
[2017-10-28] MEDS ORDERED: LISINOPRIL 5 MG TABLET ONE (19:24)
[2017-10-28] MEDS: LEVOFLOXACIN 500 MG/D5W 100 ML 100 ML IV SCH (19:25)
[2017-10-28] MEDS: HYDROCHLOROTHIAZIDE 25 MG TABLET PO SCH (19:25)
[2017-10-28] MEDS: METHYLPREDNISOLONE SOD SUCC 40MG/ML 1ML IVP SCH (21:18)
[2017-10-28] MEDS: MONTELUKAST SODIUM 10 MG TAB PO SCH (21:18)
[2017-10-28] MEDS: LISINOPRIL 10 MG TABLET PO SCH (21:19)
[2017-10-29] MEDS: IPRATROPIUM/ALBUTEROL SULFATE 3 ML SOLUTION IH SCH ×6 (02:31→21:42)
[2017-10-29 03:59] VITALS: BP 119/72
[2017-10-29] MEDS: BUDESONIDE 0.5 MG/2 ML INH IH SCH ×2 (06:34→18:02)
[2017-10-29 07:00] VITALS: BP 127/74
[2017-10-29] MEDS: INSULIN GLARGINE 100 UNITS/ML 10 ML VIAL SQ SCH ×2 (07:44→21:18)
[2017-10-29] MEDS: INSULIN HUMULIN R 100 UNIT/ML 3ML SQ SCH ×4 (07:45→21:20)
[2017-10-29] MEDS: METHYLPREDNISOLONE SOD SUCC 40MG/ML 1ML IVP SCH (10:14)
[2017-10-29] MEDS: LISINOPRIL 10 MG TABLET PO SCH ×2 (10:15→21:14)
[2017-10-29] MEDS: HYDROCHLOROTHIAZIDE 25 MG TABLET PO SCH (10:16)
[2017-10-29] MEDS: ENOXAPARIN SODIUM 40 MG/0.4 ML SYRINGE SQ SCH (10:16)
[2017-10-29 11:00] VITALS: BP 131/72
[2017-10-29] MEDS ORDERED: RACEPINEPHRINE HCL 2.25% 0.5 ML NEB SOLN ONE (13:37)
[2017-10-29] MEDS: RACEPINEPHRINE HCL 2.25% 0.5 ML NEB SOLN NEB SCH ×3 (13:39→21:42)
[2017-10-29] MEDS: LEVOFLOXACIN 500 MG/D5W 100 ML 100 ML IV SCH (14:52)
[2017-10-29 16:00] VITALS: BP 127/77
[2017-10-29 19:35] VITALS: BP 143/74
[2017-10-29] MEDS: PREDNISONE 20 MG TABLET PO SCH (21:13)
[2017-10-29] MEDS: MONTELUKAST SODIUM 10 MG TAB PO SCH (21:13)
[2017-10-29 23:53] VITALS: BP 122/55
[2017-10-30] MEDS: IPRATROPIUM/ALBUTEROL SULFATE 3 ML SOLUTION IH SCH ×4 (01:38→13:39)
[2017-10-30 03:20] VITALS: BP 131/74
[2017-10-30 05:40] LABS: CREATININE 0.6 mg/dL (0.5-1.5); POTASSIUM 4.1 mmol/L (3.5-5.1)
[2017-10-30 05:48] LABS: HEMATOCRIT 36.6 % (36-48); MEAN CORPUSCULAR HEMOGLOBIN 24.1 pg (27.0-33.0); MEAN CORPUSCULAR HGB CONC 31.8 g/dL (32.0-36.0); MEAN CORPUSCULAR VOLUME 75.7 fL (79-99); PLATELET COUNT (AUTO) 334 K/uL (130-400); RED BLOOD CELL COUNT(AUTO) 4.84 MIL/uL (4.00-5.50); RED CELL DISTRIBUTION WIDTH 20.4 % (11.0-15.5); WHITE BLOOD COUNT (AUTO) 22.7 K/uL (4.8-10.8)
[2017-10-30] MEDS: INSULIN HUMULIN R 100 UNIT/ML 3ML SQ SCH ×2 (06:20→11:30)
[2017-10-30] MEDS: INSULIN GLARGINE 100 UNITS/ML 10 ML VIAL SQ SCH (06:20)
[2017-10-30] MEDS: BUDESONIDE 0.5 MG/2 ML INH IH SCH (06:41)
[2017-10-30 08:00] VITALS: BP 142/80
[2017-10-30] MEDS: LISINOPRIL 10 MG TABLET PO SCH (09:51)
[2017-10-30] MEDS: HYDROCHLOROTHIAZIDE 25 MG TABLET PO SCH (09:51)
[2017-10-30] MEDS: PREDNISONE 20 MG TABLET PO SCH (09:51)
[2017-10-30] MEDS: ENOXAPARIN SODIUM 40 MG/0.4 ML SYRINGE SQ SCH (09:55)
[2017-10-30 11:50] VITALS: BP 140/77
[2017-11-04] MEDS ORDERED: FLUT1BLS IH (20:56)
[2017-11-04] MEDS ORDERED: METH4TAB PO (20:56)
== END 2017-10-30 17:40 | disposition home or self-care (01) | DRG 189 ==
LOC: EDH 11:38 → EDHIP 11:39 → 3AH 22:04
PROVIDERS: ADMIT Family Medicine; ATTEND Family Medicine
PROC: 5A09357 Assistance with Respiratory Ventilation, Less than 24 Consecutive Hours, Continuous Positive Airway Pressure (ICD-10-PCS; principal; 2017-10-28)
DX: J96.00 Acute respiratory failure, unspecified whether with hypoxia or hypercapnia (principal); E66.01 Morbid (severe) obesity due to excess calories; J44.1 Chronic obstructive pulmonary disease with (acute) exacerbation; J45.901 Unspecified asthma with (acute) exacerbation; Z68.43 Body mass index [BMI] 50.0-59.9, adult; Z68.44 Body mass index [BMI] 60.0-69.9, adult; E11.9 Type 2 diabetes mellitus without complications; D72.829 Elevated white blood cell count, unspecified; I10 Essential (primary) hypertension; Z90.49 Acquired absence of other specified parts of digestive tract; S19.9XXA Unspecified injury of neck, initial encounter; X58.XXXA Exposure to other specified factors, initial encounter; Y93.89 Activity, other specified; Y92.89 Other specified places as the place of occurrence of the external cause; Y99.8 Other external cause status; Z87.01 Personal history of pneumonia (recurrent)
CPT/HCPCS: 36415; 71046; 80048; 80053; 82948; 83880; 84484; 85025; 85027; 93005; 94640; 94660; 94664; 94667; 94668; J1650; J1815; J1956; J2920; J2930

== ENCOUNTER → 2018-06-16 | Outpatient (CLI) | payer MEDICAID ==
[~2018-06-16] VITALS: Ht 5.1 cm; Wt 139.3 kg
--- NOTE | 2018-06-16 11:51 | NUR ---
Bariatric Nutrition Consult: Visit /3: Pt seeking nutrition guidance for weight loss surgery to improve quality of life. Surgery suggestion has been provided by pt's PCP as believed to be beneficial to her health to reduce complications pt is currently having with comorbidities of diabetes, high blood pressure, asthma, tracheostomy and lung collapse. Due to current complications pt reports being out of work, unable to do much of physical activity that will tire her easily such as cooking and exercise. However, pt reports an unintentional weight loss of 80lb in the past 7 months due to the multiple hospital admissions where she had to intubated and tube fed. Pt also reports forgetful memory since hospital admissions and was unable to provide 24hour food recall. However pt did report beans being her favorite food. AMADO reviewed major food groups with pt and practiced with pt balancing meals with all food groups. Pt verbalize she has no problem with any food groups and will work on balancing meals. Pt with multiple questions on favorite food items and their feasibility to consume them, RD answered all of pt's questions and advised pt to eat healthy balanced meals. Pt has set short term goals to work on as her mcc goal is to lose weight: 1) Portion food. 2) Eat more vegetables. 3) Not to eat any more Menudo. Addendum: 06/16/18 at [address]IA MÉNDEZ RD RD Amended: Links added.
== END | disposition home or self-care (01) ==
LOC: DTH 08:44
PROVIDERS: ATTEND Surgery
DX: E11.9 Type 2 diabetes mellitus without complications (principal); E66.09 Other obesity due to excess calories
CPT/HCPCS: 97802

== ENCOUNTER → 2018-07-30 | Outpatient (CLI) | payer MEDICAID ==
--- NOTE | 2018-07-30 12:33 | NUR ---
Bariatric Nutrition Consult: Visit 08/01: Pt reports being admitted in the hospital's ICY for a week this past month with diagnosis of pneumonia. Today pt with cough every time she attempted to speak. Pt appeared weak. Pt did minimal talking d/t increased cough w/phlegm, however provided feedback to RD's questions with "yes" or "no" answers. Pt she was able to attempt doing physical activity to the best of her ability d/t her recent hospital admission. Pt also reports attempting to eat healthy with what her daughters cook for her. All of pt's family on the same weight loss plan, assisting with healthy meals with goals of healthy lifestyle. RD has provided pt with "20 Ways to Enjoy More Fruits and Vegetables" and "Eating Right For A Healthy Weight" education materials. Materials reviewed in detail with pt and multiple examples were provided. Pt has verbalize understanding and will continue to work on previous goals, 1) Increase Physical activity 2) Eat healthier. Pt has been encouraged to contact RD if additional nutritional questions or concerns arise. Pt has verbalized understanding. Addendum: 07/30/18 at [address] MÉNDEZ RD RD Amended: Links added. Addendum: 07/30/18 at 1255 by CASSIA DEV, RD RD CORRECTION: Hospital's ICU
== END | disposition home or self-care (01) ==
LOC: DTH 10:55
PROVIDERS: ATTEND Surgery
DX: E66.09 Other obesity due to excess calories (principal); E11.9 Type 2 diabetes mellitus without complications
CPT/HCPCS: 97803

== ENCOUNTER → 2018-08-12 | Outpatient (CLI) | payer MEDICAID | END | disposition home or self-care (01) | LOC: RAH 09:49 | PROVIDERS: ATTEND Internal Medicine Cardiovascular Disease | DX: I10 Essential (primary) hypertension (principal) | CPT/HCPCS: 93306 ==

== ENCOUNTER → 2018-08-27 | Outpatient (CLI) | payer MEDICAID ==
--- NOTE | 2018-08-09 09:30 | NUR ---
called dr. bryant to notify of patient acuity, on trach. patient did not bring her suction machine. I notified dr. bryant we dont have a suction machine or crash cart or ambubag if needed. for patient safety I suggested if procedure can be done at the hospital, as per dr. bryant reschedule patient after 08/19/[address] lai is back in town. patient informed of change, patient agreed to be done at hospital and to reschedule. patient left aax3 in no distress. front tender notified and will notify scheduling. Addendum: 08/09/18 at 2435 by MANUELA DALEY RN RN we do have ambubag in facility. but no suction machine if needed for this type of patient.
[~2018-08-27] MED LIST changes: -ALBU6.7H IH; -AUD IH; -METF850T2 PO; +REGADENOSON 0.4 MG/5 ML PF SYG IVP SCH
== END | disposition home or self-care (01) ==
LOC: SHCH 08-09 08:53 → RAH 09:23
PROVIDERS: ATTEND Internal Medicine Cardiovascular Disease
DX: Z01.810 Encounter for preprocedural cardiovascular examination (principal); I25.9 Chronic ischemic heart disease, unspecified
CPT/HCPCS: 78452; 93017; 96374; A9500 ×2; J2785

== ENCOUNTER 2018-11-08 07:59 | Day surgery (SDC) | payer MEDICAID ==
[~2018-11-08] VITALS: Ht 157.5 cm; Wt 138.8 kg
[2018-11-08 08:30] VITALS: BP 106/61
[2018-11-08] MEDS ORDERED: FURO20TA4 PO (08:55)
[2018-11-08] MEDS ORDERED: ALBU8.5H8 IH (08:55)
[2018-11-08] MEDS ORDERED: ALBUTEROL IH (08:55)
[2018-11-08] MEDS ORDERED: BUSP15 PO (08:55)
[2018-11-08] MEDS ORDERED: RANI-643 PO (08:55)
[2018-11-08 08:59] LABS: BASOPHILS % (AUTO) 0.6 % (0.0-5.0); EOSINOPHILS % (AUTO) 1.7 % (0.0-8.0); HEMATOCRIT 34.3 % (36-48); LYMPHOCYTES % (AUTO) 29.7 % (21.0-51.0); MEAN CORPUSCULAR HEMOGLOBIN 25.6 pg (27.0-33.0); MEAN CORPUSCULAR HGB CONC 32.2 g/dL (32.0-36.0); MEAN CORPUSCULAR VOLUME 79.5 fL (79-99); MONOCYTES % (AUTO) 6.6 % (3.0-13.0); NEUTROPHILS % (AUTO) 61.4 % (40.0-77.0); PLATELET COUNT (AUTO) 298 K/uL (130-400); RED BLOOD CELL COUNT(AUTO) 4.31 MIL/uL (4.00-5.50); RED CELL DISTRIBUTION WIDTH 16.4 % (11.0-15.5); WHITE BLOOD COUNT (AUTO) 10.2 K/uL (4.8-10.8)
[2018-11-08 09:14] LABS: CREATININE 0.6 mg/dL (0.5-1.5); POTASSIUM 4.2 mmol/L (3.5-5.1)
[2018-11-08] MEDS ORDERED: SODIUM CHLORIDE 0.9% 1000ML 1,000 ML IV ONE (09:20)
[2018-11-08 11:05] VITALS: BP 127/56
[2018-11-08 11:10] VITALS: BP 112/38
[2018-11-08 11:15] VITALS: BP 124/69
[2018-11-08 11:20] VITALS: BP 112/64
[2018-11-08 11:25] VITALS: BP 111/57
== END 2018-11-08 11:43 | disposition home or self-care (01) ==
LOC: DAH 07:59 → ENDO 07:59
PROVIDERS: ATTEND Surgery
DX: K21.9 Gastro-esophageal reflux disease without esophagitis (principal); G47.30 Sleep apnea, unspecified; I10 Essential (primary) hypertension; E10.9 Type 1 diabetes mellitus without complications; E66.01 Morbid (severe) obesity due to excess calories; R00.0 Tachycardia, unspecified; Z98.890 Other specified postprocedural states; Z79.899 Other long term (current) drug therapy; Z68.43 Body mass index [BMI] 50.0-59.9, adult
CPT/HCPCS: 36415; 43235; 80048; 82948 ×2; 85025; A4606 ×2; J7030; 43239

== ENCOUNTER → 2020-07-02 | Outpatient (CLI) | payer OTHER ==
[~2020-07-02] MED LIST changes: +ALBU8.5H8 IH; +ALBUTEROL IH; +BUSP15 PO; +FURO20TA4 PO; +RANI-655 PO; -REGADENOSON 0.4 MG/5 ML PF SYG IVP SCH
== END | disposition home or self-care (01) ==
LOC: RAH 10:10
PROVIDERS: ATTEND Internal Medicine Cardiovascular Disease
DX: Z13.6 Encounter for screening for cardiovascular disorders (principal)
CPT/HCPCS: 75571

== ENCOUNTER 2021-02-25 08:33 | Day surgery (SDC) | payer MEDICARE ==
[2021-02-20 10:08] LABS: BASOPHILS % (AUTO) 0.5 % (0.0-5.0); EOSINOPHILS % (AUTO) 1.6 % (0.0-8.0); HEMATOCRIT 31.3 % (36-48); LYMPHOCYTES % (AUTO) 26.1 % (21.0-51.0); MEAN CORPUSCULAR HEMOGLOBIN 22.9 pg (27.0-33.0); MEAN CORPUSCULAR HGB CONC 30.4 g/dL (32.0-36.0); MEAN CORPUSCULAR VOLUME 75.6 fL (79-99); MONOCYTES % (AUTO) 6.1 % (3.0-13.0); NEUTROPHILS % (AUTO) 65.3 % (40.0-77.0); PLATELET COUNT (AUTO) 317 K/uL (130-400); RED BLOOD CELL COUNT(AUTO) 4.14 MIL/uL (4.00-5.50); RED CELL DISTRIBUTION WIDTH 15.6 % (11.0-15.5); WHITE BLOOD COUNT (AUTO) 8.5 K/uL (4.8-10.8)
[2021-02-20 10:22] LABS: CREATININE 0.5 mg/dL (0.5-1.5); POTASSIUM 3.8 mmol/L (3.5-5.1)
[2021-02-22 11:54] VITALS: BP 161/74
[2021-02-25] VITALS (16 sets, daily range): BP systolic 121–155; BP diastolic 51–78
[~2021-02-25] VITALS: Ht 154.9 cm; Wt 119.3 kg
[~2021-02-25 08:33] MED LIST changes: -ALBU8.5H8 IH; -ALBUTEROL IH; -BUSP15 PO; +CEFAZOLIN SODIUM 1 GM VIAL IVP ONE; -FURO20TA4 PO; +METF-444 PO; +METO-408 PO; -RANI-655 PO
[2021-02-25] MEDS ORDERED: CEFAZOLIN SODIUM 1 GM VIAL ONE (09:27)
[2021-02-25] MEDS: 0.9%NACL 1000ML 1,000 ML IV SCH ×3 (09:42→13:38)
[2021-02-25] MEDS ORDERED: MELO10CA3 PO (09:42)
[2021-02-25] MEDS ORDERED: ONDANSETRON 4MG INJ ONE (13:00)
[2021-02-25] MEDS ORDERED: DEXAMETHASONE SOD PHOSPHATE 10MG/ML 1ML VIAL ONE (13:00)
[2021-02-25] MEDS ORDERED: LIDOCAINE PF 100MG/5ML (2%) SYRINGE 5ML ONE (13:00)
[2021-02-25] MEDS ORDERED: FENTANYL CITRATE PF 50 MCG/1 ML 2ML VIAL ONE ×3 (13:01→14:00)
[2021-02-25] MEDS ORDERED: MIDAZOLAM HCL 1 MG/ML 2ML VIAL ONE (13:01)
[2021-02-25] MEDS ORDERED: PROPOFOL 10 MG/ML 20ML VIAL IV ONE (13:01)
[2021-02-25] MEDS ORDERED: MEPERIDINE-PF 25 MG/ML SYG ONE ×5 (13:04→14:49)
[2021-02-25] MEDS ORDERED: PHENYLEPHRINE HCL 10 MG/ML 1ML VIAL IV ONE (13:39)
[2021-04-22] MEDS ORDERED: ALBU8.5H8 IH ×2 (17:06)
[2021-04-22] MEDS ORDERED: ALBU0.63 IH ×2 (17:06)
== END 2021-02-25 15:50 | disposition home or self-care (01) ==
LOC: DAH 08:33
PROVIDERS: ATTEND Surgery
DX: R10.9 Unspecified abdominal pain (principal); Z20.822 Contact with and (suspected) exposure to COVID-19; L90.5 Scar conditions and fibrosis of skin; M79.3 Panniculitis, unspecified; J44.9 Chronic obstructive pulmonary disease, unspecified; K21.9 Gastro-esophageal reflux disease without esophagitis; E66.01 Morbid (severe) obesity due to excess calories; E11.9 Type 2 diabetes mellitus without complications; I10 Essential (primary) hypertension; G47.30 Sleep apnea, unspecified; Z79.899 Other long term (current) drug therapy; Z79.01 Long term (current) use of anticoagulants; Z88.8 Allergy status to other drugs, medicaments and biological substances; Z79.84 Long term (current) use of oral hypoglycemic drugs; Z90.49 Acquired absence of other specified parts of digestive tract; Z98.890 Other specified postprocedural states; Z98.891 History of uterine scar from previous surgery; Z98.84 Bariatric surgery status; Z90.722 Acquired absence of ovaries, bilateral; Z82.49 Family history of ischemic heart disease and other diseases of the circulatory system; Z83.3 Family history of diabetes mellitus; Z68.42 Body mass index [BMI] 45.0-49.9, adult; Z99.81 Dependence on supplemental oxygen
CPT/HCPCS: 13160; 36415; 80048; 82948 ×2; 85025; 87635; 88305; A4213; A4215; A4221; A4222; A4223; A4452; A4600; A4663; A5120; A6260; A6446; C9803; J0690; J1100; J2001; J2175 ×5; J2250; J2370; J2405; J2704; J3010 ×3; J7030 ×2

== ENCOUNTER 2021-04-23 06:38 | Day surgery (SDC) | payer MEDICARE ==
[~2021-04-23 06:38] MED LIST changes: +0.9%NACL 1000ML 1,000 ML IV ONE; +ALBU0.63 IH; +ALBU8.5H8 IH; -CEFAZOLIN SODIUM 1 GM VIAL IVP ONE; +MELO10CA3 PO
[2021-04-23 07:15] VITALS: BP 129/64
[2021-04-23] MEDS ORDERED: PROPOFOL 10 MG/ML 20ML VIAL IV ONE (09:25)
[2021-04-23 09:55] VITALS: BP 98/53
[2021-04-23 10:00] VITALS: BP 106/53
[2021-04-23 10:05] VITALS: BP 129/78
[2021-04-23 10:10] VITALS: BP 134/59
[2021-04-23 10:15] VITALS: BP 142/80
== END 2021-04-23 10:25 | disposition home or self-care (01) ==
LOC: DAH 06:38 → ENDO 06:38
PROVIDERS: ATTEND Internal Medicine
DX: Z12.11 Encounter for screening for malignant neoplasm of colon (principal); Z20.822 Contact with and (suspected) exposure to COVID-19; R12 Heartburn; D50.9 Iron deficiency anemia, unspecified; K44.9 Diaphragmatic hernia without obstruction or gangrene; R94.5 Abnormal results of liver function studies; R13.10 Dysphagia, unspecified; K31.89 Other diseases of stomach and duodenum; F41.9 Anxiety disorder, unspecified; F32.9 Major depressive disorder, single episode, unspecified; M19.90 Unspecified osteoarthritis, unspecified site; J44.9 Chronic obstructive pulmonary disease, unspecified; I10 Essential (primary) hypertension; E11.9 Type 2 diabetes mellitus without complications; Z86.19 Personal history of other infectious and parasitic diseases; Z98.84 Bariatric surgery status; Z79.899 Other long term (current) drug therapy; Z90.49 Acquired absence of other specified parts of digestive tract; Z98.890 Other specified postprocedural states
CPT/HCPCS: 43239; 82948 ×2; 87635; 93005; A4215 ×2; A4221; A4222; A4223; A4606; A4620; A4663; C9803; G0105; J2704; J7030; 45337; 45378

== ENCOUNTER 2021-04-24 09:16 | Day surgery (SDC) | payer MEDICARE ==
[~2021-04-24] VITALS: Ht 154.9 cm; Wt 117.5 kg
[~2021-04-24 09:16] MED LIST changes: -0.9%NACL 1000ML 1,000 ML IV ONE
[2021-04-24] MEDS ORDERED: 0.9%NACL 1000ML 1,000 ML IV ONE (10:50)
[2021-04-24 10:53] VITALS: BP 110/55
[2021-04-24] MEDS ORDERED: LIDOCAINE HCL 1% 20 ML VIAL ONE (11:39)
[2021-04-24] MEDS ORDERED: PROPOFOL 10 MG/ML 20ML VIAL IV ONE (11:39)
[2021-04-24] MEDS ORDERED: MIDAZOLAM HCL 1 MG/ML 2ML VIAL ONE (11:39)
[2021-04-24] MEDS ORDERED: EPHEDRINE SULFATE 50 MG/ML AMPULE ONE (11:54)
[2021-04-24 11:57] VITALS: BP 132/83
[2021-04-24 12:02] VITALS: BP 137/84
[2021-04-24 12:07] VITALS: BP 135/78
== END 2021-04-24 12:50 | disposition home or self-care (01) ==
LOC: DAH 09:16 → SUH 09:16
PROVIDERS: ATTEND Internal Medicine
DX: Z09 Encounter for follow-up examination after completed treatment for conditions other than malignant neoplasm (principal); Z20.822 Contact with and (suspected) exposure to COVID-19; K63.5 Polyp of colon; D50.9 Iron deficiency anemia, unspecified; J44.9 Chronic obstructive pulmonary disease, unspecified; E11.9 Type 2 diabetes mellitus without complications; I10 Essential (primary) hypertension; R13.10 Dysphagia, unspecified; Z79.899 Other long term (current) drug therapy; Z90.49 Acquired absence of other specified parts of digestive tract; Z98.890 Other specified postprocedural states; Z98.84 Bariatric surgery status; Z79.84 Long term (current) use of oral hypoglycemic drugs; Z88.8 Allergy status to other drugs, medicaments and biological substances
CPT/HCPCS: 45380; 45385; 82948; 88305; 88342; A4215 ×2; A4221; A4222; A4223; A4606; A4620; A4663; J2250; J2704; J3490; J7030

== ENCOUNTER → 2022-05-12 | Outpatient (CLI) | payer MEDICARE | END | disposition home or self-care (01) | LOC: SHCH 12:50 | PROVIDERS: ATTEND Internal Medicine Cardiovascular Disease | DX: R42 Dizziness and giddiness (principal) | CPT/HCPCS: 93306 ==